=== PATIENT | male | born 1975 | race Caucasian/White ===

== ENCOUNTER 2018-06-02 10:51 | Day surgery (SDC) | payer MEDICAID ==
[2018-06-01 16:23] LABS: BASOPHILS % (AUTO) 0.6 % (0-1); EOSINOPHILS # (AUTO) 0.5 X10'3 (0-0.9); LYMPHOCYTES % (AUTO) 28.5 % (21-51); MEAN CORPUSCULAR HEMOGLOBIN 31.5 PG (27.0-31.0); MEAN CORPUSCULAR HGB CONC 35.4 g/dL (33.0-36.5); MEAN CORPUSCULAR VOLUME 89.2 FL (78-98); MEAN PLATELET VOLUME 8.8 FL (7.4-10.4); MONOCYTES # (AUTO) 0.6 X10'3 (0-0.9); MONOCYTES % (AUTO) 8.2 % (2-12); NEUTROPHILS # (AUTO) 3.9 X10'3 (1.8-7.7); NEUTROPHILS % (AUTO) 55.7 % (42-75); PRE OP HEMATOCRIT 45.8 % (42.0-52.0); PRE OP HEMOGLOBIN 16.2 g/dL (14.0-17.9); PRE OP PLATELET COUNT 178 X10'3 (140-440); RED BLOOD COUNT 5.14 X10'6 (4.70-6.10); RED CELL DISTRIBUTION WIDTH 12.3 % (11.5-14.5)
[2018-06-01 16:29] LABS: CLARITY,URINE CLEAR (Clear); COLOR,URINE STRAW (Yellow); GLUCOSE, URINE NEGATIVE (Neg); KETONES,URINE NEGATIVE (Neg); LEUKOCYTE ESTERASE ,URINE NEGATIVE (Neg); NITRITES, URINE NEGATIVE (Neg); OCCULT BLOOD,URINE NEGATIVE (Neg); PROTEIN,URINE NEGATIVE (Neg); UROBILINOGEN,URINE 0.2 E.U/dL (0.2-1.0)
[2018-06-01 16:30] LABS: UA COLLECTION TYPE VOIDED
[2018-06-01 16:31] LABS: ALBUMIN 4.2 G/DL (3.4-5.0); ALBUMIN/GLOBULIN RATIO 1.2 (1.1-1.5); ALKALINE PHOSPHATASE 52 IU/L (46-116); BLOOD UREA NITROGEN 18 MG/DL (7-18); BUN/CREATININE RATIO 16.4 (5.4-32.0); CALCIUM 9.3 MG/DL (8.5-10.1); CHLORIDE 107 MMOL/L (99-107); PRE OP ALT 39 U/L (30-65); PRE OP ANION GAP 7 (8-16); PRE OP AST 21 U/L (10-37); PRE OP BILIRUB, TOTAL 0.5 MG/DL (0.0-1.0); PRE OP GLUCOSE 96 MG/DL (70-104); PRE OP POTASSIUM 3.6 MMOL/L (3.4-5.1); PRE OP SODIUM 143 MMOL/L (135-145); TOTAL CARBON DIOXIDE 28.9 MMOL/L (24-32); TOTAL PROTEIN 7.7 G/DL (6.4-8.2); eGFR 73 ML/MIN
[2018-06-02] VITALS (18 sets, daily range): BP systolic 108–185; BP diastolic 46–106
[~2018-06-02] VITALS: Ht 180.3 cm; Wt 102.0 kg
[~2018-06-02 10:51] MED LIST: NO HOME MEDS; cefazolin/dext.iso 2gm/100 ML IV ONE; famotidine 20mg tablet PO ONE; meperidine/PF 25mg/ml syringe IV PRN; morphine 4 MG/ML inj SYRINge IV PRN; ondansetron/PF 4mg/2ml inj IV PRN; proCHLORperazine 10 MG/2 ml inj IV PRN; ringers solution, lacted 1,000 ML IV SCH
[2018-06-02] MEDS ORDERED: ROPIVAcaine 0.5% (5mg/ml) 30ml vial ONE (13:05)
[2018-06-02] MEDS ORDERED: dexamethasone sod phosphate 10mg/ml inj ONE (13:18)
[2018-06-02] MEDS ORDERED: sevoflurane 250ml liquid IH ONE (13:18)
[2018-06-02] MEDS ORDERED: midazolam 2 mg/2 ml injection ONE (13:28)
[2018-06-02] MEDS ORDERED: fentaNYL/PF 50MCG/1 ML 2ML syringe ONE ×2 (13:28→14:08)
[2018-06-02] MEDS ORDERED: LIDOcaine 2% (20mg/ml) 5ml vial ONE (13:30)
[2018-06-02] MEDS ORDERED: propofol inj 20 ML IV ONE (13:30)
[2018-06-02] MEDS ORDERED: ondansetron/PF 4mg/2ml inj ONE (14:07)
[2018-06-02] MEDS ORDERED: ketorolac trometh. 30mg/ml inj. ONE (14:10)
--- NOTE | 2018-06-02 14:35 | NUR ---
Received from OR via , accompanied by Anesthesiologist DR FORREST and report given by Anesthesiolgist. AWAKENS TO VOICE. VITALS STABLE. DRESSING DI. C/O RECTAL PAIN. WILL MEDICATE.
[2018-06-02] MEDS: meperidine/PF 25mg/ml syringe IV PRN ×4 (14:46→15:26)
[2018-06-02] MEDS ORDERED: HYDROcodone/acetaminophen 10/325mg tab PO PRN ×2 (15:40)
--- NOTE | 2018-06-02 18:35 | NUR ---
PT IS AWAKE AND ORIENTED. VITALS STABLE. STATES PAIN GAS IMPROVED. UNABLE TO VOID AFTER SEVERAL ATTEMPTS. BLADDER SCAN SHOWED 300CC IN BLADDER. WILL CONSOLT WITH MD FOR ORDERS.
--- NOTE | 2018-06-02 19:45 | NUR ---
AWAKE AND ORIENTED. VITALS STABLE. STATES MINIMAL DISCOMFORT. WAS ABLE TO VOID. HOME WITH HIS SPOUSE AT THIS TIME.
== END 2018-06-02 19:45 | disposition home or self-care (01) ==
LOC: PAS 10:51
PROVIDERS: ATTEND Surgery
DX: K64.3 Fourth degree hemorrhoids (principal); K64.4 Residual hemorrhoidal skin tags
CPT/HCPCS: 36415; 46260; 80053; 81003; 82948; 85025; 93005; A6224; A6449; J0690; J1100; J1885; J2001; J2175; J2250; J2270; J2405; J2704; J3010; A7000; J2795; J7120